=== PATIENT | male | born 1985 | race Caucasian/White ===

== ENCOUNTER 2017-03-10 23:32 | Emergency (ER) | payer SELFPAY ==
[~2017-03-10] VITALS: Ht 182.9 cm; Wt 77.1 kg
[2017-03-11] MEDS ORDERED: ONDANSETRON HCL 4 MG/2 ML VIAL ONE (00:03)
[2017-03-11] MEDS ORDERED: ONDANSETRON HCL 4 MG/2 ML VIAL IV ONE (00:15)
[2017-03-11] MEDS ORDERED: SODIUM CHLORIDE 0.9% 1,000 ML IV ONE (00:30)
[2017-03-11 00:31] LABS: Basophils # (auto) 0.1 uL; Basophils % (auto) 0.5 % (0.0-2.0); Eosinophils # (auto) 0.1 uL; Eosinophils % (auto) 0.9 % (0.0-7.0); Hematocrit 36.1 % (41.0-53.0); Hemoglobin 12.2 g/dL (13.5-17.5); Lymphocytes # (auto) 2.5 uL; Lymphocytes % (auto) 26.9 % (10.0-50.0); Mean Corpuscular Hemoglobin 31.4 pg (28.0-32.0); Mean Corpuscular Hgb Conc. 33.7 g/dL (32.0-36.0); Mean Corpuscular Volume 93.3 fL (80.0-100.0); Mean Platelet Volume 7.7 fL (6.9-10.8); Monocytes # (auto) 1.1 uL; Monocytes % (auto) 12.1 % (0.0-12.0); Neutrophils # (auto) 5.6 uL; Neutrophils % (auto) 59.6 % (37.0-80.0); Platelet Count (auto) 258 10^3/uL (140-450); Red Cell Distribution Width 12.4 % (11.8-14.3); White Blood Cell 9.4 10^3/uL (4.4-10.8)
[2017-03-11 00:47] LABS: Urine Bilirubin Negative (Negative); Urine Blood Negative /uL (Negative); Urine Color Colorless (Yellow); Urine Glucose Normal (Normal); Urine Ketone Negative (Negative); Urine Nitrite Negative (Negative); Urine RBC <1 /hpf (0 - 3); Urine Squamous Epithelial Cell FEW /hpf (<5); Urine Urobilinogen Normal (Negative); Urine pH 5.5 (5.0-8.0)
[2017-03-11 00:53] LABS: Albumin 3.2 g/dL (3.4-5.0); Anion Gap 13 (5-15); Aspartate Aminotransferase 22 U/L (15-37); BUN/Creatinine Ratio 12.7; Blood Urea Nitrogen 15 mg/dL (7-18); Calcium 7.3 mg/dL (8.5-10.1); Carbon Dioxide 20 mmol/L (21-32); Chloride 108 mmol/L (98-107); GFR African American 93 mL/min; GFR Non-African American 77 mL/min; Glucose 100 mg/dL (74-106); Salicylate 2.9 mg/dL (2.8-20.0); Sodium 141 mmol/L (136-145)
[2017-03-11 00:55] LABS: Acetaminophen < 2.0 ug/mL (10-30); Alkaline Phosphatase 65 U/L (45-117); Bilirubin, Total 0.3 mg/dL (0.2-1.0); Total Protein 5.7 g/dL (6.4-8.2)
[2017-03-11 02:52] VITALS: BP 133/84
== END 2017-03-11 02:56 | disposition home or self-care (01) ==
LOC: EDBD 23:32 → ER 23:34
DX: R41.82 Altered mental status, unspecified (principal)
CPT/HCPCS: 36415; 70450; 80053; 80307; 80320; 80329; 81001; 83735; 85025; 93005; 96361; 96374; 99285; J2405